=== PATIENT | male | born 1975 | race Caucasian/White ===

== ENCOUNTER → 2016-12-06 | Outpatient (CLI) | payer BC, OTHER ==
[2016-12-06 12:53] LABS: MEAN CORPUSCULAR HEMOGLOBIN 29.1 pg (25-34); MEAN CORPUSCULAR HGB CONC 33.5 g/dl (32-36); MEAN PLATELET VOLUME 9.6 fL (7.4-10.4); PLATELET COUNT 213 K/uL (130-400); RED BLOOD COUNT 5.63 M/uL (4.7-6.1); WHITE BLOOD COUNT 7.78 K/uL (4.8-10.8)
== END | disposition home or self-care (01) ==
LOC: C.LAB1850 10:18
PROVIDERS: ATTEND Internal Medicine Endocrinology, Diabetes & Metabolism
DX: E34.9 Endocrine disorder, unspecified (principal)

== ENCOUNTER 2022-12-26 19:36 | Observation (INO) ==
[2022-12-26 21:38] LABS: Basophils # (auto) 0.02 K/uL (0.00-0.20); Basophils % (auto) 0.1 %; Eosinophils # (auto) 0.02 K/uL (0.00-0.50); Eosinophils % (auto) 0.1 %; Hematocrit (blood only) 53.9 % (42.0-52.0); Hemoglobin 18.8 g/dl (14.0-18.0); Immature Granulocytes # (auto) 0.05 K/uL (0.01-0.20); Immature Granulocytes % (auto) 0.3 %; Lymphocytes # (auto) 2.06 K/uL (1.20-3.40); Lymphocytes % (auto) 11.6 %; Mean Corpuscular Hemoglobin 29.6 pg (25.0-34.0); Mean Corpuscular Hgb Conc 34.9 g/dL (32.0-36.0); Mean Corpuscular Volume 84.7 fL (80.0-100.0); Mean Platelet Volume 9.1 fL (9.4-12.4); Monocytes # (auto) 1.23 K/uL (0.11-0.59); Monocytes % (auto) 6.9 %; Neutrophils # (auto) 14.36 K/uL (1.40-6.50); Platelet Count 263 K/uL (130-400); RDW Coefficient of Variation 12.5 % (11.5-14.5); RDW Standard Deviation 38.7 fL (36.4-46.3); Red Blood Count 6.36 M/uL (4.70-6.10); White Blood Count 17.74 K/ul (4.8-10.8)
[2022-12-26 21:51] LABS: Appearance Urine Clear (Clear); Bacteria Urine Automated Negative (Negative); Bilirubin Urine Negative (Negative); Blood Urine 1+ (Negative); Cast Urine Automated 0 /lpf (0-5); Color Urine Yellow; Epithelial Cell Urine Auto 0-5 /lpf (0-5); Glucose Urine UA Negative (Negative); Ketones Urine 1+ (Negative); Leukocyte Esterase Urine Negative (Negative); Nitrite Urine Negative (Negative); Protein Urine Negative (Negative); Specific Gravity Urine 1.009 (1.000-1.030); Urobilinogen Urine Negative (Negative); WBC Urine Automated 0 /hpf (0-5); pH Urine 6.5 (4.5-7.5)
[2022-12-26 22:03] LABS: Albumin Globulin Ratio 1.5 (0.9-2); BUN Creatinine Ratio 7.8 (10-20); Bilirubin,Total 1.4 mg/dl (0.2-1.0); Calcium 10.1 mg/dl (8.6-10.3); Creatinine Clr Calc Pharmacy 93.3 ml/min; Est GFR (African American) 99.6 ml/min; Est GFR (Non-African American) 85.9 ml/min; Globulin 3.4 gm/dl (2.5-4.0); Potassium 3.8 mmol/L (3.5-5.1); Total Protein 8.4 gm/dl (6.0-8.3)
[2022-12-26] MEDS ORDERED: SODIUM CHLORIDE 0.9% 1,000 ML IV ONE (23:48)
[2022-12-26] MEDS ORDERED: PANTOprazole 80 MG in DEXTROSE 5% 100 ML IV STA (23:48)
[2022-12-26] MEDS ORDERED: ONDANSETRON INJ 2 MG/ML 2 ML VIAL IV STA (23:48)
[2022-12-26] MEDS ORDERED: FAMOTIDINE 20MG IV PUSH 20 MG/5 ML SYR IV STA (23:48)
[2022-12-27] MEDS ORDERED: OPTIRAY 320 100ml IV ONE (00:09)
--- NOTE | 2022-12-27 00:10 | Emergency Department Note ---
History of Present Illness General Chief complaint: GI Assessment Stated complaint: ABDOMINAL PAIN, BLOODY STOOL Time Seen by Provider: 12/26/22 23:29 History of Present Illness Maximum Pain Intensity: 6 This 47-year-old gentleman presents to the ER complaining of abdominal pain and bloody diarrhea today. He states he started feeling unwell last night. Colonoscopy recently was normal. He has had a stomach ulcer in the past and symptoms feel somewhat similar. Patient denies well water, recent antibiotics, chest pain, dyspnea, fever, chills, flulike illness. He states he is healthy and only has testosterone deficiency. Home Medications Medication Instructions Recorded Confirmed Type fexofenadine 180 mg tablet 180 mg PO QAM PRN Allergy Symptoms 04/27/19 12/27/22 History (Allergy Relief (fexofenadine)) cholecalciferol (vitamin D3) 25 25 mcg PO DAILY 12/27/22 12/27/22 History mcg (1,000 unit) tablet (Vitamin D3) testosterone 50 mg implant pellet 25 mg implant .EVERY 3 MONTHS 12/27/22 12/27/22 History Allergies Allergy/AdvReac Type Severity Reaction Status Date / Time No Known Drug Allergies Allergy none Verified 12/27/22 00:51 Past Med/Surg History Family History Mother Diabetes Brother Diabetes Grandfather (Maternal) Diabetes Social History Smoking Status: Never smoker marital status: Feels Safe at Home: Yes Review of Systems A total of 10 systems reviewed and were otherwise negative Physical Exam Vital Signs Vital Signs - 24 hr 12/26/22 19:43 12/27/22 00:42 12/27/22 02:55 Temperature 36.7 C Temperature Source Skin Pulse Rate 73 Pulse Rate [Finger] 56 L 99 H Respiratory Rate 18 16 16 Respiratory Effort / Characteristics Non-Labored Spontaneous Respiratory Depth Normal Blood Pressure 148/93 H Blood Pressure [Right Arm] 143/96 H 142/76 H Blood Pressure Mean 111 Blood Pressure Mean [Right Arm] 111 98 Pulse Oximetry 97 97 100 Oxygen Delivery Method Room Air Sepsis Recent Fever Within 48 Hours No Sepsis New/Unexplained Change in Mental Status No Sepsis Action Taken by Nursing No Action Required 12/27/22 04:00 Temperature Temperature Source Pulse Rate Pulse Rate [Finger] Respiratory Rate Respiratory Effort / Characteristics Respiratory Depth Blood Pressure Blood Pressure [Right Arm] 133/92 Blood Pressure Mean Blood Pressure Mean [Right Arm] 105 Pulse Oximetry Oxygen Delivery Method Sepsis Recent Fever Within 48 Hours Sepsis New/Unexplained Change in Mental Status Sepsis Action Taken by Nursing VITALS: Vitals are noted on the nurse's note and reviewed by myself. Vital signs stable. GENERAL: Pleasant male, in no acute distress, nondiaphoretic, well-developed well-nourished. SKIN: The skin was without rashes, erythema, edema, or bruising. There is no tenting of the skin. Capillary reflex less than 2 seconds. HEAD: Normocephalic atraumatic. EARS: External auditory canals clear EYES: Pupils equal round and reactive to light and accommodation. Conjunctivae without injection, sclerae without icterus. Extraocular movements intact. NOSE: Patent, turbinates without inflammation or discharge. MOUTH: Mucous membranes moist. Pharynx without erythema or exudate. Uvula midline. Airway patent. Tongue does not deviate. NECK: Supple without nuchal rigidity. No lymphadenopathy. No thyromegaly. Cervical spine is nontender. No JVD. HEART: Regular rate and rhythm LUNGS: Clear to auscultation bilaterally without wheezes, rales or rhonchi. No retractions or accessory muscle use. ABDOMEN: Positive bowel sounds x 4. Normal tympanic percussion. Soft,TTP mid abdomen, without masses or organomegaly. Hernandez sign negative. No guarding or rebound tenderness. No CVA tenderness MUSCULOSKELETAL: No muscle atrophy, erythema, or edema noted. NEURO: Patient was alert and oriented to person place and time. Normal sensa tion to light and sharp touch. No focal neurological deficits. Course Administered Medications Discontinued Medications Pantoprazole Sodium 80 mg/ (Dextrose) 120 mls @ 480 mls/hr IV ONE STA Stop: 12/27/22 00:02 Last Infusion: 12/27/22 02:15 Dose: 0 mls/hr Documented By: Admin: 12/27/22 02:00 Dose: 480 mls/hr Documented By: JYOTI Famotidine (Pepcid 20mg Iv Push) 20 mg in 5 mls @ 2.5 mls/min IV NOW STA Stop: 12/26/22 23:49 Last Admin: 12/27/22 00:05 Dose: 2.5 mls/min Documented By: YOLIS Sodium Chloride (Nss) 1,000 mls @ 999 mls/hr IV .Q1H1M ONE Stop: 12/27/22 00:48 Last Infusion: 12/27/22 01:19 Dose: 0 mls/hr Documented By: Admin: 12/27/22 00:05 Dose: 999 mls/hr Documented By: YOLIS Ioversol (Optiray 320 100ml) 91 ml IV ONCE ONE Stop: 12/27/22 00:10 Last Admin: 12/27/22 00:12 Dose: 91 ml Documented By: SHERON Ondansetron HCl (Ondansetron Inj 2 Mg/Ml 2 Ml Vial) 4 mg IV NOW STA Stop: 12/26/22 23:49 Last Admin: 12/27/22 00:05 Dose: 4 mg Documented By: YOLIS Medical Decision Making Medical Records Attestation: I reviewed the patient's medical records. Home Medications Current Medication List: was personally reviewed by me Laboratory Data Attestation: I reviewed the patient's lab results. 12/26/22 21:20 12/26/22 21:20 Lab Results 12/26/22 12/26/22 12/26/22 Range/Units 21:19 21:20 21:20 WBC 17.74 H (4.8-10.8) K/ul RBC 6.36 H (4.70-6.10) M/uL Hgb 18.8 H (14.0-18.0) g/dl Hct 53.9 H (42.0-52.0) % MCV 84.7 (80.0-100.0) fL MCH 29.6 (25.0-34.0) pg MCHC 34.9 (32.0-36.0) g/dL RDW Std Deviation 38.7 (36.4-46.3) fL RDW Coeff of Kenny 12.5 (11.5-14.5) % Plt Count 263 (130-400) K/uL MPV 9.1 L (9.4-12.4) fL Immature Gran % (Auto) 0.3 % Neut % (Auto) 81.0 % Lymph % (Auto) 11.6 % Beaver % (Auto) 6.9 % Eos % (Auto) 0.1 % Baso % (Auto) 0.1 % Neut # (Auto) 14.36 H (1.40-6.50) K/uL Lymph # (Auto) 2.06 (1.20-3.40) K/uL Beaver # (Auto) 1.23 H (0.11-0.59) K/uL Eos # (Auto) 0.02 (0.00-0.50) K/uL Baso # (Auto) 0.02 (0.00-0.20) K/uL Immature Gran # (Auto) 0.05 (0.01-0.20) K/uL Sodium 135 L (136-145) mmol/L Potassium 3.8 (3.5-5.1) mmol/L Chloride 100 (98-107) mmol/L Carbon Dioxide 30 (21-32) mmol/L Anion Gap 5 (3-11) BUN 8 (6-23) mg/dl Creatinine 1.02 (0.6-1.4) mg/dl Est Cr Clr Drug Dosing 93.3 ml/min Est GFR ( Amer) 99.6 ml/min Est GFR (Non-Af Amer) 85.9 ml/min BUN/Creatinine Ratio 7.8 L (10-20) Glucose 103 H (70-99(Fasting)) mg/dl Lactate (0.4-2.0) mmol/L Calcium 10.1 (8.6-10.3) mg/dl Magnesium 2.0 (1.7-2.4) mg/dl Total Bilirubin 1.4 H (0.2-1.0) mg/dl AST 22 (13-39) U/L ALT 19 (7-52) U/L Alkaline Phosphatase 71 (34-104) U/L Total Protein 8.4 H (6.0-8.3) gm/dl Albumin 5.0 (3.4-5.0) gm/dl Globulin 3.4 (2.5-4.0) gm/dl Albumin/Globulin Ratio 1.5 (0.9-2) Lipase 7 L (11-82) U/L Urine Color Yellow Urine Appearance Clear (Clear) Urine pH 6.5 (4.5-7.5) Ur Specific [place] 1.009 (1.000-1.030) Urine Protein Negative (Negative) Urine Glucose (UA) Negative (Negative) Urine Ketones 1+ H (Negative) Urine Blood 1+ H (Negative) Urine Nitrite Negative (Negative) Urine Bilirubin Negative (Negative) Urine Urobilinogen Negative (Negative) Ur Leukocyte Esterase Negative (Negative) Urine WBC (Auto) 0 (0-5) /hpf Urine RBC (Auto) 5-10 H (0-4) /hpf U Hyaline Cast (Auto) 0 (0-5) /lpf U Epithel Cells (Auto) 0-5 (0-5) /lpf Urine Bacteria (Auto) Negative (Negative) 12/27/22 Range/Units 05:30 WBC (4.8-10.8) K/ul RBC (4.70-6.10) M/uL Hgb (14.0-18.0) g/dl Hct (42.0-52.0) % MCV (80.0-100.0) fL MCH (25.0-34.0) pg MCHC (32.0-36.0) g/dL RDW Std Deviation (36.4-46.3) fL RDW Coeff of Kenny (11.5-14.5) % Plt Count (130-400) K/uL MPV (9.4-12.4) fL Immature Gran % (Auto) % Neut % (Auto) % Lymph % (Auto) % Beaver % (Auto) % Eos % (Auto) % Baso % (Auto) % Neut # (Auto) (1.40-6.50) K/uL Lymph # (Auto) (1.20-3.40) K/uL Beaver # (Auto) (0.11-0.59) K/uL Eos # (Auto) (0.00-0.50) K/uL Baso # (Auto) (0.00-0.20) K/uL Immature Gran # (Auto) (0.01-0.20) K/uL Sodium (136-145) mmol/L Potassium (3.5-5.1) mmol/L Chloride (98-107) mmol/L Carbon Dioxide (21-32) mmol/L Anion Gap (3-11) BUN (6-23) mg/dl Creatinine (0.6-1.4) mg/dl Est Cr Clr Drug Dosing ml/min Est GFR ( Amer) ml/min Est GFR (Non-Af Amer) ml/min BUN/Creatinine Ratio (10-20) Glucose (70-99(Fasting)) mg/dl Lactate 0.9 (0.4-2.0) mmol/L Calcium (8.6-10.3) mg/dl Magnesium (1.7-2.4) mg/dl Total Bilirubin (0.2-1.0) mg/dl AST (13-39) U/L ALT (7-52) U/L Alkaline Phosphatase (34-104) U/L Total Protein (6.0-8.3) gm/dl Albumin (3.4-5.0) gm/dl Globulin (2.5-4.0) gm/dl Albumin/Globulin Ratio (0.9-2) Lipase (11-82) U/L Urine Color Urine Appearance (Clear) Urine pH (4.5-7.5) Ur Specific [place] (1.000-1.030) Urine Protein (Negative) Urine Glucose (UA) (Negative) Urine Ketones (Negative) Urine Blood (Negative) Urine Nitrite (Negative) Urine Bilirubin (Negative) Urine Urobilinogen (Negative) Ur Leukocyte Esterase (Negative) Urine WBC (Auto) (0-5) /hpf Urine RBC (Auto) (0-4) /hpf U Hyaline Cast (Auto) (0-5) /lpf U Epithel Cells (Auto) (0-5) /lpf Urine Bacteria (Auto) (Negative) Imaging Data Attestation: I personally reviewed and interpreted this imaging study as follows: Radiologist's Impression: Abdomen/Pelvis CT 12/26/22 23:48 CR Exam(s): CT ABDOMEN + PELVIS With Contrast IV Amt: 91 ml optiray 320 EXAM: CT Abdomen and Pelvis With Intravenous Contrast CLINICAL HISTORY: Reason for exam: gi bleed, mid abd pain. TECHNIQUE: Axial computed tomography images of the abdomen and pelvis with intravenous contrast. CTDI is 17.33 mGy and DLP is 887.71 mGy-cm. Automated exposure control was utilized for the study. A dose lowering technique was utilized adhering to the principles of ALARA. CONTRAST: Patient received 91 ml optiray 320 of IV contrast COMPARISON: No relevant prior studies available. FINDINGS: Lung bases: Unremarkable. No mass. No consolidation. ABDOMEN: Liver: Small liver low-density lesion, too small to characterize. No portal venous gas. Gallbladder and bile ducts: Unremarkable. No calcified stones. No ductal dilation. Pancreas: Unremarkable. No mass. No ductal dilation. Spleen: Unremarkable. No splenomegaly. Adrenals: Unremarkable. No mass. Kidneys and ureters: Unremarkable. No solid mass. No hydronephrosis. Stomach and bowel: Colonic wall thickening of the splenic flexure and proximal descending colon. Mild surrounding fat stranding. No pneumatosis. No obstruction. PELVIS: Appendix: Normal appendix. Bladder: Unremarkable. No mass. Reproductive: Unremarkable as visualized. ABDOMEN and PELVIS: Intraperitoneal space: Unremarkable. No free air. No significant fluid collection. Bones/joints: No acute fracture. No dislocation. Soft tissues: Unremarkable. Vasculature: Mild aortic calcifications. Lymph nodes: Unremarkable. No enlarged lymph nodes. IMPRESSION: Colonic wall thickening of the splenic flexure and proximal descending colon. Mild surrounding fat stranding. May represent ischemic, infectious or inflammatory colitis. Communications: Call Doctor Above results Electronically signed by: Td Fletcher M.D. 12/27/22 05:19 AM MDM Narrative Prior records/ancillary studies reviewed. Triage Nursing notes reviewed. Additional history obtained from the family. The patient's history was concerning for possible gastrointestinal bleeding. Differential diagnosis: Etiologies such as diverticulosis, AVM, coagulopathy, colitis, inflammatory bowel disease, malignancy, Vesta-Castillo tear, esophagitis, peptic ulcer disease, variceal bleed, gastritis, epistaxis, fissure, hemorrhoids, as well as others were entertained. Physical exam: As above. The patients vital signs were stable. ER treatment provided: An order was placed for continuous cardiac monitoring. The monitor shows a rate of 60-100 with a sinus rhythm per my interpretation. IV fluids Protonix Pepcid Zofran ordered On reassessment the patient felt better. Diagnostics interpreted by me: ECG: Ordered for upper GI bleed The labs Independently Interpreted by myself revealed leukocytosis, no worrisome anemia Glucose 103 Lactic was ordered and negative Imaging studies: CT was reviewed and read by radiology as above. Exam does not seem consistent with ischemic colitis. Consultation: A consultation was placed with the hospitalist. The case was discussed and diagnostics were reviewed. The patient was evaluated in the ER for further treatment. Surgery was consulted and will evaluate the patient. Case was discussed. This appears to be consistent with abdominal pain with GI bleeding most likely from colitis. Patient felt better to be medicated as above. He was unable to give a stool specimen while in the ER. Medicine and surgery were consulted. They will evaluate the patient. Patient is agreeable treatment plan of admission. Lactic was ordered. Stable H&H. By the evaluation outlined above emergent etiologies such as esophageal perforation, peptic ulcer disease, variceal bleed, coagulopathy, epistaxis, malignancy, as well as others were deemed relatively unlikely. The pt informed about the findings as listed above. All questions were answered and pleased with the treatment. The chart was completed utilizing [employer] voice recognition software. Grammatical errors, random word insertions, pronoun errors, and incomplete sentences are an occassional consequence of this system due to software limitations, ambient noise, and hardware issues. Any formal questions or concerns about the content, text, or information contained within the body of this dictation should be directly addressed to the physician media assistant for clarification. Impression & Plan Acute GI bleeding, Abdominal pain, acute Discharge Plan Visit Data Chief Complaint: GI Assessment Stated Complaint: ABDOMINAL PAIN, BLOODY STOOL ED Provider: Leah Friedman ED Midlevel Provider: Jolly Cabrera Discharge Problem: Acute GI bleeding, Abdominal pain, acute Patient Disposition: Admitted As Inpatient Condition: Good Forms Stand Alone Forms: [facility] Prescriptions Prescriptions: No Action fexofenadine [Allergy Relief (fexofenadine)] 180 mg tablet 180 mg PO QAM PRN (Reason: Allergy Symptoms) cholecalciferol (vitamin D3) [Vitamin D3] 25 mcg (1,000 unit) Tablet 25 mcg PO DAILY testosterone 50 mg Pellet 25 mg IMPLANT .EVERY 3 MONTHS Referrals Referrals: Aranza Savage MD [Primary Care Provider] -
--- NOTE | 2022-12-27 05:20 | CT Scan Report ---
Exam(s): CT ABDOMEN + PELVIS With Contrast IV Amt: 91 ml optiray 320 EXAM: CT Abdomen and Pelvis With Intravenous Contrast CLINICAL HISTORY: Reason for exam: gi bleed, mid abd pain. TECHNIQUE: Axial computed tomography images of the abdomen and pelvis with intravenous contrast. CTDI is 17.33 mGy and DLP is 887.71 mGy-cm. Automated exposure control was utilized for the study. A dose lowering technique was utilized adhering to the principles of ALARA. CONTRAST: Patient received 91 ml optiray 320 of IV contrast COMPARISON: No relevant prior studies available. FINDINGS: Lung bases: Unremarkable. No mass. No consolidation. ABDOMEN: Liver: Small liver low-density lesion, too small to characterize. No portal venous gas. Gallbladder and bile ducts: Unremarkable. No calcified stones. No ductal dilation. Pancreas: Unremarkable. No mass. No ductal dilation. Spleen: Unremarkable. No splenomegaly. Adrenals: Unremarkable. No mass. Kidneys and ureters: Unremarkable. No solid mass. No hydronephrosis. Stomach and bowel: Colonic wall thickening of the splenic flexure and proximal descending colon. Mild surrounding fat stranding. No pneumatosis. No obstruction. PELVIS: Appendix: Normal appendix. Bladder: Unremarkable. No mass. Reproductive: Unremarkable as visualized. ABDOMEN and PELVIS: Intraperitoneal space: Unremarkable. No free air. No significant fluid collection. Bones/joints: No acute fracture. No dislocation. Soft tissues: Unremarkable. Vasculature: Mild aortic calcifications. Lymph nodes: Unremarkable. No enlarged lymph nodes. IMPRESSION: Colonic wall thickening of the splenic flexure and proximal descending colon. Mild surrounding fat stranding. May represent ischemic, infectious or inflammatory colitis. Communications: Call Doctor Above results Electronically signed by: Td Fletcher M.D. 12/27/22 05:19 AM
--- NOTE | 2022-12-27 05:53 | Surgery Consultation ---
Date of Consultation December 27, 2022 Assessment & Plan (1) Colitis: The patient is being admitted on the hospitalist service. We recommend proceeding as follows: It is uncertain if the patient's colitis is ischemic, inflammatory, or infectious in nature Would recommend keeping the patient n.p.o. for the present time Would recommending hydrating the patient with intravenous fluids May be beneficial to place the patient on antibiotics Appropriate stool studies should be sent At the present time the patient does not have an acute abdomen. It does not appear that he requires an emergent surgical intervention. We will continue to monitor the patient's clinical status with further recommendations to follow Supervising Physician Co-Signing Physician Notes Patient seen and examined, labs and imaging reviewed, agree with above. 47-year-old otherwise healthy male admitted with abdominal pain and recent diarrhea. On exam he is afebrile stable vitals. Mild tenderness palpation in the left abdomen and left upper quadrant. No guarding. WBC was elevated 17 on arrival to the ED last night. CT personally reviewed and interpreted agree with the assessment of a left-sided colitis specifically at the splenic flexure. Though this is a watershed area, he is at low risk for ischemic colitis. Likely this is infectious or inflammatory a, especially given reported history of mother with Crohn's disease. No surgical intervention at this time. Continue with bowel rest for 24 hours, then may advance to clear liquids. Continue IV fluid resuscitation, and IV antibiotics, await stool cultures. May need follow- up with GI even though he had a colonoscopy recently History of Present Illness Reason for Consultation: Colitis History of Present Illness This is a 47-year-old male who presented the emergency department secondary to some abdominal pain. The patient notes over the past several weeks he has been having abdominal bloating with certain foods. He notes that he has been dealing with the symptoms but over the past 36 hours he has been having waves of abdominal pain mostly in the lower abdomen and then the patient notes that he has having episodes of severe bloody diarrhea. He says he has tried antacids with no relief. He does not note any other modifying factors to his s ymptomatology. The patient reports that he did have a colonoscopy in October of this year which other than some hemorrhoids was noted to be essentially normal. He has never had any prior abdominal surgeries. He notes that no close contacts are ill with similar symptoms. He denies any fevers, shakes, or chills. He does report that his mother has a history of Crohn's disease and he notes that some members of his family have celiac disease. He further reports that in the past he has had similar symptoms and he was treated empirically for peptic ulcer disease but has never had an upper endoscopy. Since arrival to the hospital the patient has had labs and imaging which independent reviewed. Chest x-ray did not show any evidence of pneumonia. Patient underwent a CT scan of the abdomen and pelvis. On this study the patient was noted to have colonic wall thickening at the splenic flexure and proximal descending colon. There is no pneumatosis. There is no evidence of bowel obstruction. There is mild surrounding fat stranding which was felt to represent colitis of either an ischemic, infectious, or inflammatory nature. Labs included a CBC her white blood cell count was elevated at 17.7. Hemoglobin and hematocrit were 18.8 and 53.9. Platelet count was normal. Chemistry profile showed sodium was 135 with a normal potassium. BUN and creatinine are both within the normal range. Lactic acid level was nonelevated at 0.9. Urinalysis was not indicative of infection. At the time my interview the patient was resting comfortably in bed and he was in no distress. Concerning past medical history he is treated for low testosterone but [place] any other medical problems Concerning past surgical history he has had a colonoscopy but no other prior surgeries Concerning social history he is a non-smoker Concerning family history as noted above his mother has Crohn's disease Allergies Allergy/AdvReac Type Severity Reaction Status Date / Time No Known Drug Allergies Allergy none Verified 12/27/22 00:51 Home Medications Medication Instructions Recorded Confirmed Type fexofenadine 180 mg tablet 180 mg PO QAM PRN Allergy Symptoms 04/27/19 12/27/22 History (Allergy Relief (fexofenadine)) cholecalciferol (vitamin D3) 25 25 mcg PO DAILY 12/27/22 12/27/22 History mcg (1,000 unit) tablet (Vitamin D3) testosterone 50 mg implant pellet 25 mg implant .EVERY 3 MONTHS 12/27/22 12/27/22 History Patient History Family History Mother Diabetes Brother Diabetes Grandfather (Maternal) Diabetes Social History Smoking Status: Never smoker marital status: Feels Safe at Home: Yes Review of Systems Constitutional: no fever and no chills Ear, Nose, Mouth, Throat: no ear pain Respiratory: no cough Cardiovascular: no chest pain Gastrointestinal: as per Subjective / HPI Genitourinary: no dysuria Musculoskeletal: no back pain Integumentary: no rash Neurologic: no localized weakness Physical Exam Constitutional: WD/WN, vitals as above Eyes: no conjunctival abnormality ENMT: Ears: no hearing impairment Mouth: no oropharynx abnormality Neck: trachea midline Respiratory: normal respiratory effort; no respiratory distress and no labored breathing Cardiovascular: Rate/Rhythm: regular rate and regular rhythm Vessels: radial pulses present Gastrointestinal (Abdomen): Patient's abdomen is soft and nondistended. It is nonrigid. Patient did have some slight tenderness to palpation in the periumbilical region. There is no rebound tenderness or guarding. With female nurse prosthetist present rectal examination was performed. Patient had normal sphincter tone. Hemoccult was noted to be positive Musculoskeletal: No calf tenderness Skin: no rashes Neurologic: moves all extremities Psychiatric: A+Ox3, euthymic affect Results & Data Vital Signs (Past 12 Hours) Vital Signs Temp Pulse Pulse Resp BP BP Pulse Ox 12/27/22 04:00 133/92 12/27/22 02:55 99 H 16 142/76 H 100 12/27/22 00:42 56 L 16 143/96 H 97 12/26/22 19:43 36.7 C 73 18 148/93 H 97 O2 Del Method 12/27/22 04:00 12/27/22 02:55 12/27/22 00:42 Room Air 12/26/22 19:43 PG Care Time/CCT Total # of Minutes Spent Total Time Spent with Patient: Total time spent is greater than 50% in coordination of care (as documented) at patient's floor/unit and/or counseling patient: Coding Level of Care Code 47334 IN/OBS CONSULT LVL 5,80M Diagnoses Colitis K52.9
--- NOTE | 2022-12-27 06:16 | History & Physical Report ---
Date of Service December 27, 2022 Assessment & Plan (1) Colitis: Plan: 47-year-old male with past medical significant for seasonal allergies and a disc, vitamin D deficiency, Tourette's disorder, history of psoriasis, history of low testosterone, history of gastritis, presents with abdominal pain and blood in the stools. CT scan showing colitis Colitis Ischemic versus inflammatory versus infectious Leukocytosis We will follow stool for C. difficile and stool PCR We will follow lactic acid Empirically placed on IV Protonix drip H&H every 6 hours Empiric IV Cipro and Flagyl until stool cultures and C. difficile available N.p.o., IV fluids, IV Tylenol as needed Surgery and GI consult Close monitoring med/telemetry DVT prophylaxis SCDs Disposition med/telemetry Full code History of Present Illness Chief Complaint: Abdominal pain and blood per rectum Primary Care Provider: Aranza Savage MD 47-year-old male with past medical significant for seasonal allergies , vitamin D deficiency, Tourette's disorder, history of psoriasis, history of low testosterone, history of gastritis, presents with abdominal pain and blood in the stools. Patient states noticed burning sensation in the upper abdomen Ange night and then pain radiated down into lower abdomen and started developed diarrhea and he noticed blood in the stools. Diarrhea continued throughout the day last bowel movement was just when he just came to the ER. In the ER so far not be able to give the stool sample. Denies any fevers. Has nausea. No chest pain or shortness of breath. No cough. No runny nose. No difficulty swallowing. No headache. Currently resting comfortably and hemodynamically stable. No recent use of ibuprofen and Motrin. No recent use of antibiotics. Had a colonoscopy in October 2022 and was unremarkable Past medical history. As mentioned above Past surgical history. Colonoscopy. Social history. . No smoking. No alcohol. No drug use. Family history. Brother had diabetes. Mother has diabetes. Mother had liver disease. Maternal grandfather had heart disorder. And diabetes. Allergies Allergy/AdvReac Type Severity Reaction Status Date / Time No Known Drug Allergies Allergy none Verified 12/27/22 00:51 Home Medications Medication Instructions Recorded Confirmed Type fexofenadine 180 mg tablet 180 mg PO QAM PRN Allergy Symptoms 04/27/19 12/27/22 History (Allergy Relief (fexofenadine)) cholecalciferol (vitamin D3) 25 25 mcg PO DAILY 10/26/23 10/26/23 History mcg (1,000 unit) tablet (Vitamin D3) testosterone 50 mg implant pellet 25 mg implant .EVERY 3 MONTHS 12/27/22 12/27/22 History Past Med/Surg History Family History Mother Diabetes Brother Diabetes Grandfather (Maternal) Diabetes Social History Smoking Status: Never smoker marital status: Feels Safe at Home: Yes Review of Systems Review of Systems: All systems reviewed & are unremarkable except as noted in HPI & below Physical Exam Physical Exam: General- Not in distress Head- atraumatic Eyes- PERRL. ENT- oropharynx clear Neck- supple, no JVD. Lungs- clear to auscultation , no wheezing or crackles. Heart- regular rhythm; no murmur, no gallop. Abdomen- normal bowel sounds, soft, mild diffuse discomfort, no distension. Extremities- no pretibial edema, no erythema seen. Neuro- alert, oriented x 3; no facial palsy; no dysarthria; moves extremities. Skin- warm & dry Results & Data Results & Data Vital Signs (Past 12 Hours) Vital Signs Temp Pulse Pulse Resp BP BP Pulse Ox 12/27/22 04:00 133/92 12/27/22 02:55 99 H 16 142/76 H 100 12/27/22 00:42 56 L 16 143/96 H 97 12/26/22 19:43 36.7 C 73 18 148/93 H 97 O2 Del Method 12/27/22 04:00 12/27/22 02:55 12/27/22 00:42 Room Air 12/26/22 19:43 Diagnostic Findings Laboratory Results WBC 17.74 K/ul (4.8-10.8) H 12/26/22 21:20 RBC 6.36 M/uL (4.70-6.10) H 12/26/22 21:20 Hgb 18.8 g/dl (14.0-18.0) H 12/26/22 21:20 Hct 53.9 % (42.0-52.0) H 12/26/22 21:20 MCV 84.7 fL (80.0-100.0) 12/26/22 21:20 MCH 29.6 pg (25.0-34.0) 12/26/22 21:20 MCHC 34.9 g/dL (32.0-36.0) 12/26/22 21:20 RDW Std Deviation 38.7 fL (36.4-46.3) 12/26/22 21:20 RDW Coeff of Kenny 12.5 % (11.5-14.5) 12/26/22 21:20 Plt Count 263 K/uL (130-400) 12/26/22 21:20 MPV 9.1 fL (9.4-12.4) L 12/26/22 21:20 Immature Gran % (Auto) 0.3 % 12/26/22 21: Neut % (Auto) 81.0 % 12/26/22 21:20 Lymph % (Auto) 11.6 % 12/26/22 21:20 [place] % (Auto) 6.9 % 12/26/22 21:20 Eos % (Auto) 0.1 % 12/26/22 21:20 Baso % (Auto) 0.1 % 12/26/22 21:20 Neut # (Auto) 14.36 K/uL (1.40-6.50) H 12/26/22 21:20 Lymph # (Auto) 2.06 K/uL (1.20-3.40) 12/26/22 21:20 [place] # (Auto) 1.23 K/uL (0.11-0.59) H 12/26/22 21:20 Eos # (Auto) 0.02 K/uL (0.00-0.50) 12/26/22 21:20 Baso # (Auto) 0.02 K/uL (0.00-0.20) 12/26/22 21:20 Immature Gran # (Auto) 0.05 K/uL (0.01-0.20) 12/26/22 21:20 Sodium 135 mmol/L (136-145) L 12/26/22 21:20 Potassium 3.8 mmol/L (3.5-5.1) 12/26/22 21:20 Chloride 100 mmol/L (98-107) 12/26/22 21:20 Carbon Dioxide 30 mmol/L (21-32) 12/26/22 21:20 Anion Gap 5 (3-11) 12/26/22 21:20 BUN 8 mg/dl (6-23) 12/26/22 21:20 Creatinine 1.02 mg/dl (0.6-1.4) 12/26/22 21:20 Est Cr Clr Drug Dosing 93.3 ml/min 12/26/22 21:20 Est GFR ( Amer) 99.6 ml/min 12/26/22 21:20 Est GFR (Non-Af Amer) 85.9 ml/min 12/26/22 21:20 BUN/Creatinine Ratio 7.8 (10-20) L 12/26/22 21:20 Glucose 103 mg/dl (70-99(Fasting)) H 12/26/22 21:20 Lactate 0.9 mmol/L (0.4-2.0) 12/27/22 05:30 Calcium 10.1 mg/dl (8.6-10.3) 12/26/22 21:20 Magnesium 2.0 mg/dl (1.7-2.4) 12/26/22 21:20 Total Bilirubin 1.4 mg/dl (0.2-1.0) H 12/26/22 21:20 AST 22 U/L (13-39) 12/26/22 21:20 ALT 19 U/L (7-52) 12/26/22 21:20 Alkaline Phosphatase 71 U/L (34-104) 12/26/22 21:20 Total Protein 8.4 gm/dl (6.0-8.3) H 12/26/22 21:20 Albumin 5.0 gm/dl (3.4-5.0) 12/26/22 21:20 Globulin 3.4 gm/dl (2.5-4.0) 12/26/22 21:20 Albumin/Globulin Ratio 1.5 (0.9-2) 12/26/22 21:20 Lipase 7 U/L (11-82) L 12/26/22 21:20 Urine Color Yellow 12/26/22 21:19 Urine Appearance Clear (Clear) 12/26/22 21:19 Urine pH 6.5 (4.5-7.5) 12/26/22 21:19 Ur Specific [place] 1.009 (1.000-1.030) 12/26/22 21:19 Urine Protein Negative (Negative) 12/26/22 21:19 Urine Glucose (UA) Negative (Negative) 12/26/22 21:19 Urine Ketones 1+ (Negative) H 12/26/22 21:19 Urine Blood 1+ (Negative) H 12/26/22 21:19 Urine Nitrite Negative (Negative) 12/26/22 21:19 Urine Bilirubin Negative (Negative) 12/26/22 21:19 Urine Urobilinogen Negative (Negative) 12/26/22 21:19 Ur Leukocyte Esterase Negative (Negative) 12/26/22 21:19 Urine WBC (Auto) 0 /hpf (0-5) 12/26/22 21:19 Urine RBC (Auto) 5-10 /hpf (0-4) H 12/26/22 21:19 U Hyaline Cast (Auto) 0 /lpf (0-5) 12/26/22 21:19 U Epithel Cells (Auto) 0-5 /lpf (0-5) 12/26/22 21:19 Urine Bacteria (Auto) Negative (Negative) 12/26/22 21:19 Impressions Abdomen/Pelvis CT 12/26/22 23:48 CR Exam(s): CT ABDOMEN + PELVIS With Contrast IV Amt: 91 ml optiray 320 EXAM: CT Abdomen and Pelvis With Intravenous Contrast CLINICAL HISTORY: Reason for exam: gi bleed, mid abd pain. TECHNIQUE: Axial computed tomography images of the abdomen and pelvis with intravenous contrast. CTDI is 17.33 mGy and DLP is 887.71 mGy-cm. Automated exposure control was utilized for the study. A dose lowering technique was utilized adhering to the principles of ALARA. CONTRAST: Patient received 91 ml optiray 320 of IV contrast COMPARISON: No relevant prior studies available. FINDINGS: Lung bases: Unremarkable. No mass. No consolidation. ABDOMEN: Liver: Small liver low-density lesion, too small to characterize. No portal venous gas. Gallbladder and bile ducts: Unremarkable. No calcified stones. No ductal dilation. Pancreas: Unremarkable. No mass. No ductal dilation. Spleen: Unremarkable. No splenomegaly. Adrenals: Unremarkable. No mass. Kidneys and ureters: Unremarkable. No solid mass. No hydronephrosis. Stomach and bowel: Colonic wall thickening of the splenic flexure and proximal descending colon. Mild surrounding fat stranding. No pneumatosis. No obstruction. PELVIS: Appendix: Normal appendix. Bladder: Unremarkable. No mass. Reproductive: Unremarkable as visualized. ABDOMEN and PELVIS: Intraperitoneal space: Unremarkable. No free air. No significant fluid collection. Bones/joints: No acute fracture. No dislocation. Soft tissues: Unremarkable. Vasculature: Mild aortic calcifications. Lymph nodes: Unremarkable. No enlarged lymph nodes. IMPRESSION: Colonic wall thickening of the splenic flexure and proximal descending colon. Mild surrounding fat stranding. May represent ischemic, infectious or inflammatory colitis. Communications: Call Doctor Above results Electronically signed by: Td Fletcher M.D. 12/27/22 05:19 AM Code Status & VTE Plan VTE Prophylaxis Plan VTE Prophylaxis will be ordered: Yes
--- NOTE | 2022-12-27 06:59 | XRay Report ---
XR chest 1V portable CLINICAL HISTORY: Upper abdominal pain. COMPARISON STUDY: No previous studies for comparison. FINDINGS: There is no lucency under the hemidiaphragms to suggest pneumoperitoneum on upright chest r adiograph. Lung volumes are normal. Lungs are clear. There is no pneumothorax or pleural effusion. Ca rdiac size is normal. Mediastinal contours are normal. There is no evidence for pulmonary edema. IMPRESSION: No acute cardiopulmonary findings. ACT 112: Negative or not required by law. Electronically signed by: Shmuel Reilly M.D. 12/27/2022 6:57 AM
[2022-12-27] MEDS: CIPROFLOXACIN / D5W 400 MG/200 ML BAG IV SCH ×2 (09:53→23:37)
[2022-12-27] MEDS: metroNIDAZOLE 500 MG/100 ML BAG IV SCH ×2 (09:53→17:28)
[2022-12-27] MEDS ORDERED: ONDANSETRON INJ 2 MG/ML 2 ML VIAL IV PRN (12:43)
[2022-12-27] MEDS ORDERED: metroNIDAZOLE 500 MG/100 ML BAG IV SCH (12:43)
[2022-12-27] MEDS ORDERED: ACETAMINOPHEN 1,000 MG/100 ML VIAL IV PRN (12:43)
[2022-12-27] MEDS ORDERED: CIPROFLOXACIN / D5W 400 MG/200 ML BAG IV SCH (12:43)
[2022-12-27] MEDS ORDERED: NITROGLYCERIN SL 0.4 MG/TAB TAB SL PRN (12:43)
[2022-12-27] MEDS ORDERED: PANTOPRAZOLE BOLUS/DRIP IV STA (12:43)
[2022-12-27] MEDS: PANTOprazole 40 MG in DEXTROSE 5% MINI-B 100 ML IV SCH ×2 (13:28→20:02)
[2022-12-27] MEDS: SODIUM CHLORIDE 0.9% 1,000 ML IV SCH ×2 (13:28→20:03)
[2022-12-27 14:31] LABS: Basophils # (auto) 0.03 K/uL (0.00-0.20); Basophils % (auto) 0.2 %; Eosinophils # (auto) 0.11 K/uL (0.00-0.50); Eosinophils % (auto) 0.9 %; Hematocrit (blood only) 51.8 % (42.0-52.0); Hemoglobin 17.4 g/dl (14.0-18.0); Immature Granulocytes # (auto) 0.03 K/uL (0.01-0.20); Immature Granulocytes % (auto) 0.2 %; Lymphocytes # (auto) 2.01 K/uL (1.20-3.40); Lymphocytes % (auto) 15.7 %; Mean Corpuscular Hgb Conc 33.6 g/dL (32.0-36.0); Mean Corpuscular Volume 86.5 fL (80.0-100.0); Monocytes # (auto) 1.03 K/uL (0.11-0.59); Monocytes % (auto) 8.1 %; Neutrophils # (auto) 9.58 K/uL (1.40-6.50); Neutrophils % (auto) 74.9 %; Platelet Count 209 K/uL (130-400); RDW Coefficient of Variation 12.4 % (11.5-14.5); RDW Standard Deviation 39.2 fL (36.4-46.3); Red Blood Count 5.99 M/uL (4.70-6.10); White Blood Count 12.79 K/ul (4.8-10.8)
[2022-12-27 16:43] LABS: BUN Creatinine Ratio 8.5 (10-20); Creatinine Clr Calc Pharmacy 89.8 ml/min; Potassium 3.9 mmol/L (3.5-5.1)
[2022-12-27 20:22] LABS: Hematocrit (blood only) 49.4 % (42.0-52.0); Hemoglobin 17.1 g/dl (14.0-18.0)
[2022-12-28] MEDS: PANTOprazole 40 MG in DEXTROSE 5% MINI-B 100 ML IV SCH ×2 (00:35→05:33)
[2022-12-28 01:30] LABS: Hematocrit (blood only) 50.5 % (42.0-52.0); Hemoglobin 17.2 g/dl (14.0-18.0)
[2022-12-28] MEDS: metroNIDAZOLE 500 MG/100 ML BAG IV SCH ×2 (01:32→09:39)
[2022-12-28] MEDS: SODIUM CHLORIDE 0.9% 1,000 ML IV SCH (05:33)
[2022-12-28 06:36] LABS: Hematocrit (blood only) 48.9 % (42.0-52.0); Hemoglobin 16.9 g/dl (14.0-18.0); Mean Corpuscular Hemoglobin 29.4 pg (25.0-34.0); Mean Corpuscular Hgb Conc 34.6 g/dL (32.0-36.0); Platelet Count 200 K/uL (130-400); RDW Coefficient of Variation 12.3 % (11.5-14.5); RDW Standard Deviation 38.3 fL (36.4-46.3); Red Blood Count 5.75 M/uL (4.70-6.10); White Blood Count 10.83 K/ul (4.8-10.8)
[2022-12-28 07:04] LABS: BUN Creatinine Ratio 10.5 (10-20); Calcium 8.9 mg/dl (8.6-10.3); Creatinine Clr Calc Pharmacy 83.5 ml/min; Est GFR (Non-African American) 75.1 ml/min; Magnesium 1.9 mg/dl (1.7-2.4); Phosphorus 4.1 mg/dl (2.5-4.9); Potassium 4.1 mmol/L (3.5-5.1)
--- NOTE | 2022-12-28 08:10 | Hospitalist Progress Note ---
Date of Service December 28, 2022 Assessment & Plan (1) Colitis: Plan: 47 yo male with hx of seasonal allergies, vitamin D deficiency, Tourette's disorder, history of psoriasis, history of low testosterone, history of gastritis, presents with abdominal pain and blood in the stools. CT scan showing colitis Colitis Ischemic versus inflammatory versus infectious Leukocytosis We will follow stool for C. difficile and stool PCR We will follow lactic acid Empirically placed on IV Protonix drip H&H every 6 hours Empiric IV Cipro and Flagyl until stool cultures and C. difficile available Surgery and GI consult 12/28 patient's abdominal pain has resolved. He did not have any stools since coming to the hospital. Tolerating low fiber diet. Discussed w/ GI - ok to discharge on 5 more days of PO antibiotics. Will send Rx for cipro and flagyl Admission and Anticipated Discharge Date Admission Date: December 27, 2022 Subjective Pt seen in follow up of abdominal pain, blood per rectum, colitis on CT Yesterday seen in ED and said he had no BM since coming to hospital Stool studies ordered on admission Today pt is feeling well. Says his abdominal pain has resolved. His diet was advanced and pt is tolerating. No BM no fever chills, chest pain shortness of breath Discussed w/ GI - ok to discharge home on oral antibiotics. Review of Systems Review of Systems: All systems reviewed & are unremarkable except as noted in Subjective Physical Exam Physical Exam: General- Not in distress Head- atraumatic Eyes- PERRL. ENT- oropharynx clear Neck- supple, no JVD. Lungs- clear to auscultation , no wheezing or crackles. Heart- regular rhythm; no murmur, no gallop. Abdomen- normal bowel sounds, soft, nontender (resolved) Extremities- no pretibial edema, no erythema seen. Neuro- alert, oriented x 3; no facial palsy; no dysarthria; moves extremities. Skin- warm & dry Results & Data Results & Data Vital Signs (Past 12 Hours) Vital Signs Temp Pulse Pulse Pulse Resp BP Pulse Ox 12/28/22 07:44 36.4 C L 80 18 160/71 H 96 12/28/22 07:20 58 L 12/28/22 03:15 36.7 C 63 18 107/65 97 12/27/22 23:44 67 12/27/22 22:00 36.8 C 61 18 119/80 96 12/27/22 20:15 83 O2 Del Method 12/28/22 07:44 Room Air 12/28/22 07:20 12/28/22 03:15 Room Air 12/27/22 23:44 12/27/22 22:00 Room Air 12/27/22 20:15 Laboratory Results 12/28/22 12/28/22 12/28/22 Range/Units 06:15 06:15 01:02 WBC 10.83 H (4.8-10.8) K/ul RBC 5.75 (4.70-6.10) M/uL Hgb 16.9 17.2 (14.0-18.0) g/dl Hct 48.9 50.5 (42.0-52.0) % MCV 85.0 (80.0-100.0) fL MCH 29.4 (25.0-34.0) pg MCHC 34.6 (32.0-36.0) g/dL RDW Std Deviation 38.3 (36.4-46.3) fL RDW Coeff of Kenny 12.3 (11.5-14.5) % Plt Count 200 (130-400) K/uL MPV 9.0 L (9.4-12.4) fL Immature Gran % (Auto) % Neut % (Auto) % Lymph % (Auto) % [place] % (Auto) % Eos % (Auto) % Baso % (Auto) % Neut # (Auto) (1.40-6.50) K/uL Lymph # (Auto) (1.20-3.40) K/uL [place] # (Auto) (0.11-0.59) K/uL Eos # (Auto) (0.00-0.50) K/uL Baso # (Auto) (0.00-0.20) K/uL Immature Gran # (Auto) (0.01-0.20) K/uL Sodium 137 (136-145) mmol/L Potassium 4.1 (3.5-5.1) mmol/L Chloride 104 (98-107) mmol/L Carbon Dioxide 29 (21-32) mmol/L Anion Gap 4 (3-11) BUN 12 (6-23) mg/dl Creatinine 1.14 (0.6-1.4) mg/dl Est Cr Clr Drug Dosing 83.5 ml/min Est GFR ( Amer) 87.0 ml/min Est GFR (Non-Af Amer) 75.1 ml/min BUN/Creatinine Ratio 10.5 (10-20) Glucose 87 (70-99(Fasting)) mg/dl Calcium 8.9 (8.6-10.3) mg/dl Phosphorus 4.1 (2.5-4.9) mg/dl Magnesium 1.9 (1.7-2.4) mg/dl 12/27/22 12/27/22 12/27/22 Range/Units 20:09 14:17 14:17 WBC 12.79 H (4.8-10.8) K/ul RBC 5.99 (4.70-6.10) M/uL Hgb 17.1 17.4 (14.0-18.0) g/dl Hct 49.4 51.8 (42.0-52.0) % MCV 86.5 (80.0-100.0) fL MCH 29.0 (25.0-34.0) pg MCHC 33.6 (32.0-36.0) g/dL RDW Std Deviation 39.2 (36.4-46.3) fL RDW Coeff of Kenny 12.4 (11.5-14.5) % Plt Count 209 (130-400) K/uL MPV 9.0 L (9.4-12.4) fL Immature Gran % (Auto) 0.2 % Neut % (Auto) 74.9 % Lymph % (Auto) 15.7 % [place] % (Auto) 8.1 % Eos % (Auto) 0.9 % Baso % (Auto) 0.2 % Neut # (Auto) 9.58 H (1.40-6.50) K/uL Lymph # (Auto) 2.01 (1.20-3.40) K/uL [place] # (Auto) 1.03 H (0.11-0.59) K/uL Eos # (Auto) 0.11 (0.00-0.50) K/uL Baso # (Auto) 0.03 (0.00-0.20) K/uL Immature Gran # (Auto) 0.03 (0.01-0.20) K/uL Sodium 137 (136-145) mmol/L Potassium 3.9 (3.5-5.1) mmol/L Chloride 105 (98-107) mmol/L Carbon Dioxide 24 (21-32) mmol/L Anion Gap 8 (3-11) BUN 9 (6-23) mg/dl Creatinine 1.06 (0.6-1.4) mg/dl Est Cr Clr Drug Dosing 89.8 ml/min Est GFR ( Amer) 95.0 ml/min Est GFR (Non-Af Amer) 82.0 ml/min BUN/Creatinine Ratio 8.5 L (10-20) Glucose 92 (70-99(Fasting)) mg/dl Calcium 9.0 (8.6-10.3) mg/dl Phosphorus (2.5-4.9) mg/dl Magnesium 2.0 (1.7-2.4) mg/dl Medications Administered Current Inpatient Medications Ciprofloxacin (Cipro / D5w) 400 mg in 200 mls @ 100 mls/hr IV Q12H ZARINA; Protocol Stop: 01/06/23 08:44 Last Infusion: 12/28/22 01:34 Dose: Infused Metronidazole (Flagyl) 500 mg in 100 mls @ 100 mls/hr IV Q8H ZARINA; Protocol Stop: 01/06/23 08:44 Last Infusion: 12/28/22 03:33 Dose: Infused Sodium Chloride (Nss) 1,000 mls @ 100 mls/hr IV .Q10H ZARINA Stop: 01/26/23 12:42 Last Admin: 12/28/22 05:33 Dose: 100 mls/hr Acetaminophen (Ofirmev) 1,000 mg in 100 mls @ 400 mls/hr IV Q8H PRN PRN Reason: Pain or Fever Stop: 12/30/22 12:42 Pantoprazole Sodium 40 mg/ (Dextrose) 100 mls @ 20 mls/hr IV Q5H ZARINA Stop: 01/26/23 12:59 Last Admin: 12/28/22 05:33 Dose: 8 mg/hr, 20 mls/hr Nitroglycerin (Nitroglycerin Sl 0.4 Mg/Tab Tab) 0.4 mg SL Q5M PRN PRN Reason: Chest Pain Stop: 01/26/23 12:42 Ondansetron HCl (Ondansetron Inj 2 Mg/Ml 2 Ml Vial) 4 mg IV Q6H PRN PRN Reason: Nausea Stop: 01/26/23 12:42
--- NOTE | 2022-12-28 09:28 | Gastrointestinal Consultation ---
Date of Consultation December 28, 2022 Assessment & Plan (1) Colitis: (2) Acute GI bleeding: Pt is a 47 yo male w diarrhea, rectal bleeding, CT abd/pelvis showed colitis on splenic flexure and proximal descending colon. Blood ct, BUN normal. Last colonoscopy 2 months ago normal except int hemorrhoids. He hasn't had any more diarrhea or rectal bleeding since admission. Suspect likely infectious colitis, less likely IBD or ischemic. - Diet as tolerated - Cipro/Flagyl antibx - Check stool cx and Cdiff once he's able to produce stool sample - Pls recall GI prn Supervising Physician Co-Signing Physician Notes I performed a history and physical examination of the patient today, including specifically on physical exam - soft abdomen. I have discussed the patient's management with the advanced practitioner. Please refer to the nurse practitioner's note for the documented findings and plan of care. Seems like acute infectious colitis. Recent colonoscopy normal. Get stool studies. IV ABx. Recall GI if needed. History of Present Illness Reason for Consultation: Abd pain, rectal bleeding Requesting Physician: Dr. Damián Meza Attending Physician: Dr. Uri Matute History of Present Illness Pt is a 47 yo male w PMHx of Vit D deficiency, seasonal allergies, Tourette's disorder, psoriasis, low testosterone, gastritis, who was admitted for diarrhea and rectal bleeding which started 3 nights ago. Pt woke up Saturday night w lower abd cramping and several episodes of diarrhea. Finally had just blood not stool. Had associated chills, no fever, no CP, SOB, nausea or vomiting. Since coming to ED he hasn't had any more BMs or rectal bleeding. Lower abd cramping is improved. His labs showed mild leukocytosis, no anemia, BUN normal. CT abd/pelvis w contrast showed colonic wall thickening in splenic flexure and proximal descending colon w fat stranding. He denies any sick contact, travels or recent antibx. Denies any undercooked or raw foods. Last colonoscopy 10/2022 - normal, int hemorrhoids. Denies NSAIDs, blood thinners Denies hx of abd surgery Denies family hx of IBD, colorectal ca Allergies Allergy/AdvReac Type Severity Reaction Status Date / Time No Known Drug Allergies Allergy none Verified 12/27/22 00:51 Home Medications Medication Instructions Recorded Confirmed Type fexofenadine 180 mg tablet 180 mg PO QAM PRN Allergy Symptoms 04/27/19 12/27/22 History (Allergy Relief (fexofenadine)) cholecalciferol (vitamin D3) 25 25 mcg PO DAILY 12/27/22 12/27/22 History mcg (1,000 unit) tablet (Vitamin D3) testosterone 50 mg implant pellet 25 mg implant .EVERY 3 MONTHS 12/27/22 12/27/22 History Patient History Family History Mother Diabetes Brother Diabetes Grandfather (Maternal) Diabetes Social History Smoking Status: Never smoker Hx Alcohol Use: No Hx Substance Use: No Preferred Language: Armenian Communication Ability: Effective Equipment Manager Required: No Beliefs That Will Affect Care: None marital status: Current Living Situation: Spouse and Family Current Living Situation Comment: lives at home with and kids Other Information That Helps Us Care for You: No Feels Safe at Home: Yes Safety Concerns: Feels Safe At This Time Review of Systems Review of Systems: All systems reviewed & are unremarkable except as noted in HPI & below Physical Exam Constitutional: WD/WN, vitals as above well groomed, cooperative and comfortable Eyes: PERRL, conjunctivae normal, anicteric sclerae ENMT: external ear and nose normal, oropharynx normal Respiratory: normal respiratory effort, lungs clear to auscultation Cardiovascular: RRR, no murmur, no edema Gastrointestinal (Abdomen): normal bowel sounds, soft, nontender, no hepatosplenomegaly Skin: no rashes, warm and dry no jaundice Psychiatric: A+Ox3, euthymic affect Lymphatic: no lymphedema Results & Data Vital Signs (Past 12 Hours) Vital Signs Temp Pulse Pulse Pulse Resp BP Pulse Ox 12/28/22 07:44 36.4 C L 80 18 160/71 H 96 12/28/22 07:20 58 L 12/28/22 03:15 36.7 C 63 18 107/65 97 12/27/22 23:44 67 12/27/22 22:00 36.8 C 61 18 119/80 96 O2 Del Method 12/28/22 07:44 Room Air 12/28/22 07:20 12/28/22 03:15 Room Air 12/27/22 23:44 12/27/22 22:00 Room Air
[2022-12-28] MEDS: CIPROFLOXACIN / D5W 400 MG/200 ML BAG IV SCH (09:40)
--- NOTE | 2022-12-28 12:21 | Surgery Progress Note ---
Date of Service December 28, 2022 Assessment & Plan (1) Colitis: Plan: Colitis, likely infectious, resolving with antibiotics and fluid resuscitation Advance to low fiber diet as tolerated Okay to DC from general surgery standpoint No need for any follow-up with general surgery GI has seen the patient and does not think he needs another colonoscopy Surgery will sign off, call with questions or concerns Admission and Anticipated Discharge Date Admission Date: December 27, 2022 Subjective Admitted with colitis, likely infectious. He is no longer have any abdominal pain as tolerated his diet up to this point Physical Exam Constitutional: WD/WN, vitals as above Gastrointestinal (Abdomen): normal bowel sounds, soft, nontender, no hepatosplenomegaly Results & Data Vital Signs (Past 12 Hours) Vital Signs Temp Pulse Pulse Pulse Resp BP Pulse Ox 12/28/22 11:21 36.9 C 82 16 117/73 94 12/28/22 07:44 36.4 C L 80 18 160/71 H 96 12/28/22 07:20 58 L 12/28/22 03:15 36.7 C 63 18 107/65 97 O2 Del Method 12/28/22 11:21 Room Air 12/28/22 07:44 Room Air 12/28/22 07:20 12/28/22 03:15 Room Air Laboratory Results Laboratory Results - last 24 hr 12/27/22 12/27/22 12/27/22 14:17 14:17 20:09 WBC 12.79 H RBC 5.99 Hgb 17.4 17.1 Hct 51.8 49.4 MCV 86.5 MCH 29.0 MCHC 33.6 RDW Std Deviation 39.2 RDW Coeff of Kenny 12.4 Plt Count 209 MPV 9.0 L Immature Gran % (Auto) 0.2 Neut % (Auto) 74.9 Lymph % (Auto) 15.7 [place] % (Auto) 8.1 Eos % (Auto) 0.9 Baso % (Auto) 0.2 Neut # (Auto) 9.58 H Lymph # (Auto) 2.01 [place] # (Auto) 1.03 H Eos # (Auto) 0.11 Baso # (Auto) 0.03 Immature Gran # (Auto) 0.03 Sodium 137 Potassium 3.9 Chloride 105 Carbon Dioxide 24 Anion Gap 8 BUN 9 Creatinine 1.06 Est Cr Clr Drug Dosing 89.8 Est GFR ( Amer) 95.0 Est GFR (Non-Af Amer) 82.0 BUN/Creatinine Ratio 8.5 L Glucose 92 Calcium 9.0 Phosphorus Magnesium 2.0 12/28/22 12/28/22 12/28/22 01:02 06:15 06:15 WBC 10.83 H RBC 5.75 Hgb 17.2 16.9 Hct 50.5 48.9 MCV 85.0 MCH 29.4 MCHC 34.6 RDW Std Deviation 38.3 RDW Coeff of [place] 12.3 Plt Count 200 MPV 9.0 L Immature Gran % (Auto) Neut % (Auto) Lymph % (Auto) [place] % (Auto) Eos % (Auto) Baso % (Auto) Neut # (Auto) Lymph # (Auto) [place] # (Auto) Eos # (Auto) Baso # (Auto) Immature Gran # (Auto) Sodium 137 Potassium 4.1 Chloride 104 Carbon Dioxide 29 Anion Gap 4 BUN 12 Creatinine 1.14 Est Cr Clr Drug Dosing 83.5 Est GFR ( Amer) 87.0 Est GFR (Non-Af Amer) 75.1 BUN/Creatinine Ratio 10.5 Glucose 87 Calcium 8.9 Phosphorus 4.1 Magnesium 1.9 PG Care Time/CCT Total # of Minutes Spent Total Time Spent with Patient: Total time spent is greater than 50% in coordination of care (as documented) at patient's floor/unit and/or counseling patient: Coding Level of Care Code 35338 SUB INP/OBS CARE 2/35MIN Diagnoses Colitis K52.9
--- NOTE | 2022-12-28 14:18 | Discharge Summary ---
Date of Service December 28, 2022 Admission HPI Per Admitting Provider 47-year-old male with past medical significant for seasonal allergies , vitamin D deficiency, Tourette's disorder, history of psoriasis, history of low testosterone, history of gastritis, presents with abdominal pain and blood in the stools. Patient states noticed burning sensation in the upper abdomen Saturday night and then pain radiated down into lower abdomen and started developed diarrhea and he noticed blood in the stools. Diarrhea continued throughout the day last bowel movement was just when he just came to the ER. In the ER so far not be able to give the stool sample. Denies any fevers. Has nausea. No chest pain or shortness of breath. No cough. No runny nose. No difficulty swallowing. No headache. Currently resting comfortably and hemodynamically stable. No recent use of ibuprofen and Motrin. No recent use of antibiotics. Had a colonoscopy in October 2022 and was unremarkable Past medical history. As mentioned above Past surgical history. Colonoscopy. Social history. . No smoking. No alcohol. No drug use. Family history. Brother had diabetes. Mother has diabetes. Mother had liver disease. Maternal grandfather had heart disorder. And diabetes. Admission Exam Per Admitting Provider General- Not in distress Head- atraumatic Eyes- PERRL. ENT- oropharynx clear Neck- supple, no JVD. Lungs- clear to auscultation , no wheezing or crackles. Heart- regular rhythm; no murmur, no gallop. Abdomen- normal bowel sounds, soft, mild diffuse discomfort, no distension. Extremities- no pretibial edema, no erythema seen. Neuro- alert, oriented x 3; no facial palsy; no dysarthria; moves extremities. Skin- warm & dry Principal Diagnosis Colitis (likely infectious) Discharge Exam General- Not in distress Head- atraumatic Eyes- PERRL. ENT- oropharynx clear Neck- supple, no JVD. Lungs- clear to auscultation , no wheezing or crackles. Heart- regular rhythm; no murmur, no gallop. Abdomen- normal bowel sounds, soft, nontender (resolved) Extremities- no pretibial edema, no erythema seen. Neuro- alert, oriented x 3; no facial palsy; no dysarthria; moves extremities. Skin- warm & dry Discharge Data Allergies Allergy/AdvReac Type Severity Reaction Status Date / Time No Known Drug Allergies Allergy none Verified 10/26/23 00:51 Consultations 12/27/22 05:30 Consult General Surgery Stat ED Decision to Admit Stat 12/27/22 11:42 Consult Gastroenterology Routine 12/27/22 12:43 Consult Gastroenterology Routine Ordered Studies 12/26/22 23:48 CT Abd and Pelvis [CT abd pelvis IV con only] Stat ABDOMEN: Liver: Small liver low-density lesion, too small to characterize. No portal venous gas. Gallbladder and bile ducts: Unremarkable. No calcified stones. No ductal dilation. Pancreas: Unremarkable. No mass. No ductal dilation. Spleen: Unremarkable. No splenomegaly. Adrenals: Unremarkable. No mass. Kidneys and ureters: Unremarkable. No solid mass. No hydronephrosis. Stomach and bowel: Colonic wall thickening of the splenic flexure and proximal descending colon. Mild surrounding fat stranding. No pneumatosis. No obstruction. PELVIS: Appendix: Normal appendix. Bladder: Unremarkable. No mass. Reproductive: Unremarkable as visualized. ABDOMEN and PELVIS: Intraperitoneal space: Unremarkable. No free air. No significant fluid collection. Bones/joints: No acute fracture. No dislocation. Soft tissues: Unremarkable. Vasculature: Mild aortic calcifications. Lymph nodes: Unremarkable. No enlarged lymph nodes. IMPRESSION: Colonic wall thickening of the splenic flexure and proximal descending colon. Mild surrounding fat stranding. May represent ischemic, infectious or inflammatory colitis. Hospital Course (1) Colitis: 47 yo male with hx of seasonal allergies, vitamin D deficiency, Tourette's disorder, history of psoriasis, history of low testosterone, history of gastritis, presents with abdominal pain and blood in the stools. CT scan showing colitis Colitis Ischemic versus inflammatory versus infectious Leukocytosis We will follow stool for C. difficile and stool PCR We will follow lactic acid Empirically placed on IV Protonix drip H&H every 6 hours Empiric IV Cipro and Flagyl until stool cultures and C. difficile available Surgery and GI consult 12/28 patient's abdominal pain has resolved. He did not have any stools since coming to the hospital. Tolerating low fiber diet. Per GI - likely infectious colitis. Discussed w/ GI - ok to discharge on 5 more days of PO antibiotics. Will send Rx for cipro and flagyl Total Time Total Time Spent Total Time Spent (In Minutes): 40 Discharge Plan Discharge Items Patient Disposition: Home - Self-Care Reason For Visit: GI BLEED Discharge Diagnosis: Colitis (likely infectious) Condition on Discharge: Good Activity: Per Instructions section Non-emergency contact: Primary Care Provider Call non-emergency contact if: you have any medication questions and your symptoms worsen Follow-up/Referrals: Aranza Savage MD [Primary Care Provider] - (Date & Time 01/02/2023 10:40 AMProAranza Altamirano, [facility] ) Diet: Low Fiber Addtl Attending Provider Instructions: Follow up with primary care doctor within 1 week. The appointment was scheduled for you for 01/02/2023. Finish antibiotic treatment with ciprofloxacin and metronidazole , as prescribed. Pending Studies at Discharge: No Stand-Alone Forms: My [facility] [employer], Smoking Cessation Medications and DC Order Prescriptions: New ciprofloxacin HCl 500 mg tablet 500 mg PO BID 5 Days Qty: 10 0RF metronidazole 500 mg tablet 500 mg PO Q8H 5 Days Qty: 15 0RF Continued fexofenadine [Allergy Relief (fexofenadine)] 180 mg tablet 180 mg PO QAM PRN (Reason: Allergy Symptoms) cholecalciferol (vitamin D3) [Vitamin D3] 25 mcg (1,000 unit) Tablet 25 mcg PO DAILY testosterone 50 mg Pellet 25 mg IMPLANT .EVERY 3 MONTHS Discharge Orders: Discharge Order (Routine); Ordered 12/28/22 Ordered By: Damián Meza Admission Data Admit Date/Time: 12/27/22 06:11 Attending Provider: Damián Meza Admit Provider: Juan Spain Primary Care Provider: Aranza Savage Other Providers: Heather Pelletier ; Nuno Dimas ; Juan Spain ; Merrill Villeda ; Ambrose Patino ; Anita Herbert ; Paulina Rojas ; Luma Chadwick ; Glory Domingo ; Amrit Nicole ; Peterson James ; Eli Waters ; Gerardo Tirado ; Singh Trujillo ; Roberto Calderon ; Keyonna Castillo ; Herminia Dean ; Nadine Roger ; Uri Matute ; Kvng Hensley ; Dain Jauregui ; Radha Casper ; Tami Moses Jr
== END 2022-12-28 17:23 | disposition home or self-care (01) ==
LOC: ED 19:36 → EDINP 12-27 06:11 → INTOOBSV 12-27 06:11 → EDINP 12-27 19:08 → 2W 12-27 19:50